=== PATIENT | female | born 2000 | race Caucasian/White ===

== ENCOUNTER → 2020-10-09 | Outpatient (CLI) | payer BC | LOC: COL.CARD 09:39 | DX: R42 Dizziness and giddiness (principal) ==

== ENCOUNTER → 2021-02-12 | Outpatient (CLI) | payer BC | LOC: COL.RAD 06:41 | DX: K82.8 Other specified diseases of gallbladder (principal); R74.01 Elevation of levels of liver transaminase levels | CPT/HCPCS: A9537 ==